=== PATIENT | female | born 1940 | race Caucasian/White ===

== ENCOUNTER 2016-11-03 18:21 | Emergency (ER) | payer MEDICARE, OTHER ==
[2016-11-03 22:21] LABS: ABSOLUTE LYMPHOCYTES (AUTO) 0.6 10^3/uL (0.5-4.7); ABSOLUTE MONOCYTES (AUTO) 0.3 10^3/uL (0.1-1.4); ABSOLUTE NEUT (AUTO) 8.1 10^3/uL (1.7-8.2); BASOPHILS % (AUTO) 0.2 % (0-2); HEMATOCRIT 45.4 % (36.0-47.0); HEMOGLOBIN 15.5 g/dL (12.0-15.5); HGB HCT DIFFERENCE 1.1; LYMPHOCYTES % (AUTO) 6.4 % (13-45); MEAN CORPUSCULAR HEMOGLOBIN 30.7 pg (27.0-33.4); MEAN CORPUSCULAR HGB CONC 34.2 g/dL (32.0-36.0); MEAN CORPUSCULAR VOLUME 90 fl (80-97); MONOCYTES % (AUTO) 3.1 % (3-13); RED BLOOD COUNT 5.05 10^6/uL (3.72-5.28); RED CELL DISTRIBUTION WIDTH 14.7 % (11.5-14.0); SEGMENTED NEUTROPHILS % (AUTO) 90.3 % (42-78)
[2016-11-03 22:35] LABS: ALANINE AMINOTRANSFERASE 48 U/L (9-52); ALBUMIN 4.4 g/dL (3.5-5.0); ALKALINE PHOSPHATASE 110 U/L (38-126); ANION GAP 14 (5-19); ASPARTATE AMINO TRANSFERASE 46 U/L (14-36); BILIRUBIN,DIRECT 0.3 mg/dL (0.0-0.4); BLOOD UREA NITROGEN 20 mg/dL (7-20); CALCIUM 9.5 mg/dL (8.4-10.2); CARBON DIOXIDE 29 mmol/L (22-30); CHLORIDE 94 mmol/L (98-107); CREATININE RESULT 1.16 mg/dL (0.52-1.25); GLUCOSE 182 mg/dL (75-110); SODIUM 137.2 mmol/L (137-145); TOTAL PROTEIN 7.4 g/dL (6.3-8.2)
[2016-11-03 22:36] LABS: POTASSIUM 4.5 mmol/L (3.6-5.0)
--- NOTE | 2016-11-03 23:53 | ER Document Report ---
ED Respiratory Problem - General Chief Complaint: Flu-like symptoms, wheezing Stated Complaint: FLU SYMPTOMS Notes: Patient is a 76-year-old female, past medical history former smoker, COPD, arthritis, vascular dementia, presents with 2 days of dry cough and wheezing. She was in [place] last week, diagnosed with flu and started on Tamiflu. She finished the course, but her symptoms remain. She tried her albuterol with some relief of her wheezing. She denies chest pain, nausea, vomiting, diarrhea , leg swelling, headache, back pain or rash. TRAVEL OUTSIDE OF THE [place] IN LAST 30 DAYS: No - Related Data Allergies/Adverse Reactions: codeine [Codeine] Allergy (Mild, Verified 08/23/14 15:45) feels really strange Sulfa (Sulfonamide Antibiotics) Allergy (Mild, Verified 08/23/14 15:45) Hives amoxicillin [Amoxicillin] Allergy (Verified 08/23/14 15:45) Past Medical History - General Information source: Patient - Social History Smoking Status: Unknown if Ever Smoked Family History: Reviewed & Not Pertinent - Past Medical History Cardiac Medical History: Reports: Hx Coronary Artery Disease Denies: Hx Heart Attack, Hx Hypertension Pulmonary Medical History: Denies: Hx Asthma Neurological Medical History: Denies: Hx Cerebrovascular Accident, Hx Seizures Renal/ Medical History: Denies: Hx Peritoneal Dialysis GI Medical History: Denies: Hx Hepatitis, Hx Hiatal Hernia, Hx Ulcer Infectious Medical History: Denies: Hx Hepatitis Past Surgical History: Reports: Hx Cardiac Surgery - Stent x3., Hx Hysterectomy. Denies: Hx Mastectomy - left breast lumpectomy, Hx Open Heart Surgery, Hx Pacemaker - Immunizations Hx Diphtheria, Pertussis, Tetanus Vaccination: No Review of Systems - Review of Systems Notes: REVIEW OF SYSTEMS: CONSTITUTIONAL: -fevers, -chills EENT: -eye pain, -difficulty swallowing, -nasal congestion CARDIOVASCULAR:-chest pain, -syncope. RESPIRATORY: +cough, -SOB, +wheezing GASTROINTESTINAL: -abdominal pain, - nausea, -vomiting, -diarrhea GENITOURINARY: -dysuria, -hematuria MUSCULOSKELETAL: -back pain, -neck pain SKIN: -rash or skin lesions. HEMATOLOGIC: -easy bruising or bleeding. LYMPHATIC: -swollen, enlarged glands. NEUROLOGICAL: -altered mental status or loss of consciousness, -headache, - neurologic symptoms PSYCHIATRIC: -anxiety, -depression. ALL OTHER SYSTEMS REVIEWED AND NEGATIVE. Physical Exam - Vital signs Vitals: Temp Pulse Resp BP Pulse Ox 97.8 F 95 20 123/86 H 92 11/03/16 19:48 11/03/16 19:48 11/03/16 19:48 11/03/16 19:48 11/03/16 19:48 - Notes Notes: PHYSICAL EXAMINATION: GENERAL: Well-appearing, well-nourished and in no acute distress. HEAD: Atraumatic, normocephalic. EYES: Pupils equal round and reactive to light, extraocular movements intact, sclera anicteric, conjunctiva are normal. ENT: nares patent, oropharynx clear without exudates. Moist mucous membranes. NECK: Normal range of motion, supple without lymphadenopathy LUNGS: No restaurant distress, mild end expiratory wheezes HEART: Regular rate and rhythm without murmurs ABDOMEN: Soft, nontender, normoactive bowel sounds. No guarding, no rebound. No masses appreciated. EXTREMITIES: Normal range of motion, no pitting or edema. No cyanosis. NEUROLOGICAL: Cranial nerves grossly intact. Normal speech, normal gait. Normal sensory, motor, and reflex exams. PSYCH: Normal mood, normal affect. SKIN: Warm, Dry, normal turgor, no rashes or lesions noted. Course - Re-evaluation Re-evalutation: Patient with mild COPD exacerbation. No respiratory distress noted at this time. After 3 DuoNebs and steroids, patient feels much better. Labs are unremarkable and chest x-ray does not show pneumonia. We'll send home with 4 more days of prednisone and instructions to use her albuterol every 4 hours as needed. Given strict return precautions and she understands. - Vital Signs Vital signs: Temp Pulse Resp BP Pulse Ox 98 F 89 20 155/75 H 92 11/04/16 01:09 11/04/16 01:09 11/04/16 01:09 11/04/16 01:09 11/04/16 01:09 - Laboratory Result Diagrams: 11/03/16 21:50 11/03/16 21:50 Laboratory results interpreted by me: 11/03/16 11/03/16 21:50 21:50 RDW 14.7 H Seg Neutrophils % 90.3 H Lymphocytes % 6.4 L Chloride 94 L Est GFR ( Amer) 55 L Est GFR (Non-Af Amer) 46 L Glucose 182 H AST 46 H - Diagnostic Test Radiology reviewed: Image reviewed, Reports reviewed Radiology results interpreted by me: CXR: NAD Discharge - Discharge Clinical Impression: COPD exacerbation Condition: Stable Disposition: HOME, SELF-CARE Additional Instructions: BRONCHITIS: You have acute bronchitis. This disease is an infection or inflammation of the air passageways in your lungs. Symptoms usually include cough, low grade fever, shortness of breath, and wheezing. The cough usually persists for a couple of weeks. Most cases of bronchitis get better without antibiotics. We prescribe antibiotics when we believe bacteria are damaging your airways, or if there's high risk the bronchitis will worsen into pneumonia. Increase your fluid intake. A cool mist humidifier may make your lungs more comfortable. An expectorant (cough medicine that loosens phlegm) can help. If you smoke, STOP!!! Recovery from bronchitis can be somewhat slow, but you should see improvement within a day or two. Repeated episodes of bronchitis may result in lung damage -- for example, chronic bronchitis, recurrent pneumonias, or emphysema. Call the doctor if you develop increasing fever, shortness of breath, chest pain, bloody sputum, or otherwise worsen. If you have not improved at all after several days, contact the physician. BRONCHITIS WITH BRONCHOSPASM (WHEEZING): You have bronchitis with bronchospasm (wheezing). Sometimes people develop wheezing with a chest cold. This occurs either because of an underlying tendency toward asthma or because the virus itself irritates the bronchial tubes. This irritation causes cough, shortness of breath, and wheezing. Emergency treatment of bronchospasm may include adrenaline shots or bronchodilator aerosol. You may feel lightheaded and have a rapid pulse for an hour or two. Rest and get plenty of fluids. At home, we'll treat you with a bronchodilator inhaler. Corticosteroids may be required for some patients. Until you recover, avoid chemical fumes, dusts, pollens, and exercising in very cold or dry air. If you smoke, stop now! Most cases of bronchitis get better without antibiotics. We prescribe antibiotics when we believe bacteria are damaging your airways, or if there's high risk the bronchitis will worsen into pneumonia. Increase your fluid intake. A cool mist humidifier may make your lungs more comfortable. An expectorant (cough medicine that loosens phlegm) can help. Repeated episodes of bronchitis and bronchospasm may result in lung damage -- for example, chronic bronchitis, recurrent pneumonias, or emphysema. If you develop a fever, increased wheezing, chest pain, or severe shortness of breath, you should contact the doctor immediately. INHALED BRONCHODILATORS: You have received a treatment of and/or prescription for an inhaled bronchodilator -- a medication which stimulates the airways in the lung to dilate. This improves the flow of air in asthma, bronchitis, and emphysema. These medicines have some similarity to adrenaline, and can cause similar side effects: shakiness, racing heart, and a sense of nervousness. These side effects decrease with time. Contact your doctor if these side effects are severe. Do not over-use the medicine. Too-frequent use of the inhaler may make it ineffective. Call your doctor if the inhaler is not controlling your symptoms at the prescribed doses. STEROID MEDICATION: You have been given an injection of or oral medicine of the cortisone/ steroid class. This medication is used to control inflammation or allergy. Tree t is usually only given for a short period of time, until the acute process subsides. There are usually no side effects from short-term use of cortisone-like medications. Some persons feel an increased sense of well-being and are not sleepy at bedtime. Long-term use of cortisone medications is best avoided, unless required for a severe condition. If your condition does not remit, or relapses after the course of corticosteroid medication, you should consult your physician. USE OF ACETAMINOPHEN (Tylenol): Acetaminophen may be taken for pain relief or fever control. It's much safer than aspirin, offering a wider range of "safe" dosages. It is safe during . Some brand names are Tylenol, Panadol, Datril, Anacin 3, Tempra, and Liquiprin. Acetaminophen can be repeated every four hours. The following are maximum recommended dosages: >89 pounds or adults 650 mg to 900 mg Acetaminophen can be repeated every four hours. Maximum dose not to exceed 4000 mg a day. SMOKING: If you smoke, you should stop smoking. The tar and chemicals in cigarette smoke are harmful. Smoking has been shown to cause: emphysema chronic bronchitis lung cancer mouth and throat cancer stomach and pancreas cancer premature aging defects In addition, smoking increases ear and lung infections in children of smokers. FOLLOW-UP CARE: If you have been referred to a physician for follow-up care, call the physician s office for an appointment as you were instructed or within the next two days. If you experience worsening or a significant change in your symptoms, notify the physician immediately or return to the Emergency Department at any time for re-evaluation. Prescriptions: Prednisone [Deltasone 20 mg Tablet] 3 tab PO DAILY 4 Days Referrals: HOLLIS HARVEY MD [Primary Care Provider] - Follow up as needed
[2016-11-04] MEDS ORDERED: PREDNISONE 20 MG TABLET PO ONE (00:02)
[2016-11-04] MEDS ORDERED: IPRATROPIUM/ALBUTEROL 0.5-2.5 MG/3 ML AMPUL NEB ONE (00:02)
[2016-11-04 02:33] VITALS: BP 155/75
== END 2016-11-04 01:09 | disposition home or self-care (01) ==
LOC: ER 18:21
DX: J44.1 Chronic obstructive pulmonary disease with (acute) exacerbation (principal); R06.2 Wheezing; F01.50 Vascular dementia, unspecified severity, without behavioral disturbance, psychotic disturbance, mood disturbance, and anxiety; Z87.891 Personal history of nicotine dependence
CPT/HCPCS: 94640; 99283; 36415; 85025; 80053; 71020; A9270 ×2; J7512; J7620

== ENCOUNTER 2017-04-28 17:11 | Emergency (ER) | payer MEDICARE, OTHER ==
[2017-04-28] MEDS ORDERED: ASPIRIN 81 MG TABLET, CHEWABLE PO ONE (17:54)
--- NOTE | 2017-04-28 17:55 | ER Document Report ---
ED Medical Screen (RME) - General Mode of Arrival: Wheelchair Information source: Patient TRAVEL OUTSIDE OF THE [place] IN LAST 30 DAYS: No <KEN GALLAGHER - Last Filed: 04/28/17 18:49> <ROLAND BARRETO - Last Filed: 04/28/17 19:47> - General Chief Complaint: Abnormal Lab Results Stated Complaint: ABNORMAL LABS Time Seen by Provider: 04/28/17 17:45 Notes: 76-year-old female presents to the ED from [facility] for IV fluids after having abnormal lab results earlier this morning. Patient had a planned AAA repair on 04/21/2017 at [facility]. Patient was released, but has been experiencing fatigue, loss of appetite, poor fluid intake, and lower extremity weakness since the surgery. Patient's family called Dr. Leyva, vascular surgeon, regarding this issue and was told to follow up with her primary care provider. Patient was seen at the clinic where she was diagnosed with a UTI and told to come to the ED secondary to dehydration. Patient is on Plavix. (KEN GALLAGHER) - Related Data Allergies/Adverse Reactions: codeine [Codeine] Allergy (Mild, Verified 04/28/17 17:25) feels really strange Sulfa (Sulfonamide Antibiotics) Allergy (Mild, Verified 04/28/17 17:25) Hives amoxicillin [Amoxicillin] Allergy (Verified 04/28/17 17:25) Past Medical History - General Information source: Patient - Social History Chew tobacco use (# tins/day): No Frequency of alcohol use: None Drug Abuse: None Family history: Reviewed & Not Pertinent - Past Medical History Cardiac Medical History: Reports: Hx Coronary Artery Disease Denies: Hx Congestive Heart Failure, Hx Heart Attack, Hx Hypertension Pulmonary Medical History: Reports: Hx COPD Denies: Hx Asthma Neurological Medical History: Denies: Hx Cerebrovascular Accident, Hx Seizures Renal/ Medical History: Denies: Hx Peritoneal Dialysis GI Medical History: Denies: Hx Hepatitis, Hx Hiatal Hernia, Hx Ulcer Infectious Medical History: Denies: Hx Hepatitis Past Surgical History: Reports: Hx Cardiac Surgery - Stent x3. AAA repair, Hx Hysterectomy, Hx Vascular Surgery - carotid artery surgery. Denies: Hx Mastectomy - left breast lumpectomy, Hx Open Heart Surgery, Hx Pacemaker - Immunizations Hx Diphtheria, Pertussis, Tetanus Vaccination: No History of Influenza Vaccine for 04/2017 - 09/2017 Season: Yes Influenza Administration Date for 04/2017 - 09/2017 Season: 04/17/17 <KEN GALLAGHER - Last Filed: 04/28/17 18:49> Review of Systems - Review of Systems Constitutional: See HPI, Malaise, Weakness EENT: No symptoms reported Cardiovascular: No symptoms reported Respiratory: No symptoms reported Gastrointestinal: See HPI, Abdominal pain - left abdominal pain, Poor appetite, Poor fluid intake Genitourinary: No symptoms reported Female Genitourinary: No symptoms reported Musculoskeletal: No symptoms reported Skin: No symptoms reported Hematologic/Lymphatic: No symptoms reported Neurological/Psychological: No symptoms reported -: Yes All other systems reviewed and negative <KEN GALLAGHER - Last Filed: 04/28/17 18:49> Physical Exam - General General appearance: Alert In distress: None - Respiratory Respiratory status: No respiratory distress Breath sounds: Normal - Cardiovascular Rhythm: Regular Heart sounds: Normal auscultation Murmur: No Friction rub: No Gallop: None auscultated Pulses: Normal: Radial - Abdominal Inspection: Other - bruising to the right groin and right lower abdomen. No: Normal Bowel sounds: Normal Tenderness: Tender - tenderness to palpation of the left lower quadrant <KEN GALLAGHER - Last Filed: 04/28/17 18:49> <ROLAND BARRETO - Last Filed: 04/28/17 19:47> - Vital signs Vitals: Temp Pulse Resp BP Pulse Ox 98.4 F 75 16 109/71 97 04/28/17 17:24 04/28/17 17:24 04/28/17 17:24 04/28/17 17:24 04/28/17 17:24 - Notes Notes: Oriented to person, disoriented to place and time (ROLAND BARRETO) Course - Laboratory Result Diagrams: 04/28/17 18:53 04/28/17 18:53 <ROLAND BARRETO - Last Filed: 04/28/17 19:47> - Vital Signs Vital signs: Temp Pulse Resp BP Pulse Ox 98.4 F 75 16 109/71 97 04/28/17 17:24 04/28/17 17:24 04/28/17 17:24 04/28/17 17:24 04/28/17 17:24 Scribe Documentation - Scribe Written by Shanikaibe:: Claudio Chester, 04/28/2017 1925 acting as scribe for :: James <KEN GALLAGHER - Last Filed: 04/28/17 18:49>
[2017-04-28] MEDS ORDERED: NORMAL SALINE 1000 ML 1,000 ML IV ONE ×2 (17:56→21:45)
--- NOTE | 2017-04-28 18:23 | RADIOLOGY REPORT (SQ) ---
EXAM DESCRIPTION: CHEST SINGLE VIEW COMPLETED DATE/TIME: 04/28/2017 6:13 pm REASON FOR STUDY: SOB, fatigue, recent AAA repair COMPARISON: Two-view chest 11/03/2016, 08/23/2014 EXAM PARAMETERS: NUMBER OF VIEWS: One view. TECHNIQUE: Single frontal radiographic view of the chest acquired. RADIATION DOSE: NA LIMITATIONS: None. FINDINGS: LUNGS AND PLEURA: No opacities, masses or pneumothorax. No pleural effusion. MEDIASTINUM AND HILAR STRUCTURES: No masses. Contour normal. HEART AND VASCULAR STRUCTURES: Heart normal in size. Normal vasculature. BONES: No acute findings. HARDWARE: Surgical clips left breast. Aortic stent graft seen at the bottom edge of the field of vie w OTHER: No other significant finding. IMPRESSION: NO ACUTE RADIOGRAPHIC FINDING IN THE CHEST. TECHNICAL DOCUMENTATION: JOB ID: [id number]
[2017-04-28 19:44] LABS: PROTHROMBIN TIME 12.1 SEC (11.4-15.4)
[2017-04-28 22:13] LABS: ABSOLUTE BASOPHILS # (AUTO) 0.1 10^3/uL (0.0-0.2); ABSOLUTE EOSINOPHILS # (AUTO) 0.1 10^3/uL (0.0-0.6); ABSOLUTE MONOCYTES (AUTO) 0.5 10^3/uL (0.1-1.4); BASOPHILS % (AUTO) 0.7 % (0-2); EOSINOPHILS % (AUTO) 1.9 % (0-6); HEMATOCRIT 38.4 % (36.0-47.0); HEMOGLOBIN 13.1 g/dL (12.0-15.5); HGB HCT DIFFERENCE 0.9; MEAN CORPUSCULAR HEMOGLOBIN 30.6 pg (27.0-33.4); MEAN CORPUSCULAR HGB CONC 34.2 g/dL (32.0-36.0); MEAN CORPUSCULAR VOLUME 89 fl (80-97); MONOCYTES % (AUTO) 6.8 % (3-13); RED CELL DISTRIBUTION WIDTH 14.5 % (11.5-14.0); SEGMENTED NEUTROPHILS % (AUTO) 77.6 % (42-78); WHITE BLOOD COUNT 7.7 10^3/uL (4.0-10.5)
--- NOTE | 2017-04-28 22:22 | ER Document Report ---
ED General - General Chief Complaint: Abnormal Lab Results Stated Complaint: ABNORMAL LABS Time Seen by Provider: 04/28/17 17:45 Mode of Arrival: Wheelchair Information source: Patient, Dr. Office Notes: 76-year-old female resents with concern for weakness of one-week duration. Patient had a AAA repaired at [facility], since then has had decreased appetite. Family is concerned patient may be dehydrated and went to family doctor. I did speak with patient's primary care physician and agree that the patient appears to be dehydrated based on lab work and presentation. Patient was sent in for evaluation TRAVEL OUTSIDE OF THE [place] IN LAST 30 DAYS: No - HPI Onset: Last week Onset/Duration: Persistent Quality of pain: No pain Severity: None Pain Level: Denies Associated symptoms: Weakness, Other - Decreased appetite Exacerbated by: Denies Relieved by: Denies Similar symptoms previously: No Recently seen / treated by doctor: Yes - Related Data Allergies/Adverse Reactions: codeine [Codeine] Allergy (Mild, Verified 04/28/17 17:25) feels really strange Sulfa (Sulfonamide Antibiotics) Allergy (Mild, Verified 04/28/17 17:25) Hives amoxicillin [Amoxicillin] Allergy (Verified 04/28/17 17:25) Past Medical History - General Information source: Patient - Social History Smoking Status: Former Smoker Cigarette use (# per day): No Chew tobacco use (# tins/day): No Smoking Education Provided: No Frequency of alcohol use: None Drug Abuse: None Family History: Reviewed & Not Pertinent Patient has suicidal ideation: No - Past Medical History Cardiac Medical History: Reports: Hx Coronary Artery Disease Denies: Hx Congestive Heart Failure, Hx Heart Attack, Hx Hypertension Pulmonary Medical History: Reports: Hx COPD Denies: Hx Asthma Neurological Medical History: Denies: Hx Cerebrovascular Accident, Hx Seizures Renal/ Medical History: Denies: Hx Peritoneal Dialysis GI Medical History: Denies: Hx Hepatitis, Hx Hiatal Hernia, Hx Ulcer Infectious Medical History: Denies: Hx Hepatitis Past Surgical History: Reports: Hx Cardiac Surgery - Stent x3. AAA repair, Hx Hysterectomy, Hx Vascular Surgery - carotid artery surgery. Denies: Hx Mastectomy - left breast lumpectomy, Hx Open Heart Surgery, Hx Pacemaker - Immunizations Hx Diphtheria, Pertussis, Tetanus Vaccination: No Review of Systems - Review of Systems Notes: REVIEW OF SYSTEMS: CONSTITUTIONAL : Denies fever, chills, or sweats. Denies recent illness. EENT: Denies eye, ear, throat, or mouth pain or symptoms. Denies nasal or sinus congestion or discharge. Denies throat, tongue, or mouth swelling or difficulty swallowing. CARDIOVASCULAR: Denies chest pain. Denies palpitations or racing or irregular heart beat. Denies ankle edema. RESPIRATORY: Denies cough, cold, or chest congestion. Denies shortness of breath, difficulty breathing, or wheezing. GASTROINTESTINAL: Denies abdominal pain or distention. Denies nausea, vomiting , or diarrhea. Denies blood in vomitus, stools, or per rectum. Denies black, tarry stools. Denies constipation. GENITOURINARY: Denies difficulty urinating, painful urination, burning, frequency, blood in urine, or discharge. FEMALE GENITOURINARY: Denies vaginal bleeding, heavy or abnormal periods, irregular periods. Denies vaginal discharge or odor. MUSCULOSKELETAL: Denies back or neck pain or stiffness. Denies joint pain or swelling. SKIN: Denies rash, lesions or sores. HEMATOLOGIC : Denies easy bruising or bleeding. LYMPHATIC: Denies swollen, enlarged glands. NEUROLOGICAL: Admits to decreased appetite and weakness PSYCHIATRIC: Denies anxiety or stress. Denies depression, suicidal ideation, or homicidal ideation. ALL OTHER SYSTEMS REVIEWED AND NEGATIVE. PHYSICAL EXAMINATION: GENERAL: Well-appearing, well-nourished and in no acute distress. HEAD: Atraumatic, normocephalic. EYES: Pupils equal round and reactive to light, extraocular movements intact, conjunctiva are normal. ENT: Nares patent, oropharynx clear without exudates. Moist mucous membranes. NECK: Normal range of motion, supple without lymphadenopathy LUNGS: Breath sounds clear to auscultation bilaterally and equal. No wheezes rales or rhonchi. HEART: Regular rate and rhythm without murmurs ABDOMEN: Soft, nontender, nondistended abdomen. No guarding, no rebound. No masses appreciated. Female : deferred Musculoskeletal: Normal range of motion, no pitting or edema. No cyanosis. NEUROLOGICAL: Cranial nerves grossly intact. Normal speech, normal gait. Normal sensory, motor exams PSYCH: Normal mood, normal affect. SKIN: Warm, Dry, normal turgor, no rashes or lesions noted. Dictation was performed using Dragon voice recognition software Physical Exam - Vital signs Vitals: Temp Pulse Resp BP Pulse Ox 98.4 F 75 16 109/71 97 04/28/17 17:24 04/28/17 17:24 04/28/17 17:24 04/28/17 17:24 04/28/17 17:24 Course - Re-evaluation Re-evalutation: 04/28/17 23:15 Patient was noted to have hypokalemia, she was given 40 potassium oral, she was given 2 L of normal saline bolus. 04/28/17 23:15 Patient is noted to have elevated BUN, and was diagnosed with UTI with positive nitrites per primary care physician 04/28/17 23:59 Patient family notes she looks much better after 2 L of normal saline. I will discharge her home at this time. I believe some of her weakness may be secondary to this UTI. It is also noted that the patient has had decreased appetite, I will write for Megace to increase her appetite over the next few days and to follow-up in the office on Tuesday for reevaluation After performing a Medical Screening Examination, I estimate there is LOW risk for ACUTE CORONARY SYNDROME, RESPIRATORY FAILURE, SEPSIS OR MENINGITIS, thus I consider the discharge disposition reasonable. I have reevaluated this patient multiple times and no significant life threatening changes are noted. The patient and I have discussed the diagnosis and risks, and we agree with discharging home with close follow-up. We also discussed returning to the Emergency Department immediately if new or worsening symptoms occur. We have discussed the symptoms which are most concerning (e.g., changing or worsening pain, trouble swallowing or breathing, neck stiffness, fever) that necessitate immediate return. - Vital Signs Vital signs: Temp Pulse Resp BP Pulse Ox 98 F 54 L 19 159/72 H 98 04/28/17 21:46 04/28/17 21:46 04/28/17 23:02 04/28/17 23:02 04/28/17 23:02 - Laboratory Result Diagrams: 04/28/17 21:50 04/28/17 21:50 Laboratory results interpreted by me: 04/28/17 04/28/17 21:50 21:50 RDW 14.5 H Potassium 3.0 L* BUN 27 H Direct Bilirubin 0.5 H Alkaline Phosphatase 134 H - Diagnostic Test Radiology reviewed: Image reviewed, Reports reviewed - EKG Interpretation by Me EKG shows normal: Sinus rhythm, [place], Intervals, QRS Complexes Discharge - Discharge Clinical Impression: Weakness, Hypokalemia, Dehydration UTI (urinary tract infection) Qualifiers: Urinary tract infection type: acute cystitis Hematuria presence: without hematuria Qualified Code(s): N30.00 - Acute cystitis without hematuria Condition: Stable Disposition: HOME, SELF-CARE Instructions: Urinary Tract Infection ([facility]), Hypokalemia ([facility]) Prescriptions: Megestrol Acetate [Megace Es] 625 mg PO DAILY 3 Days oral.susp Potassium Bicarbonate/Cit AC [Potassium 25 Meq Tab Eff] 25 meq PO DAILY 3 Days tablet.eff Referrals: HOLLIS HARVEY MD [COMMUNITY BASED STAFF] - Follow up in 3-5 days
[2017-04-28 22:26] LABS: ALANINE AMINOTRANSFERASE 38 U/L (9-52); ALBUMIN 4.1 g/dL (3.5-5.0); ALKALINE PHOSPHATASE 134 U/L (38-126); ANION GAP 16 (5-19); ASPARTATE AMINO TRANSFERASE 29 U/L (14-36); BILIRUBIN,DIRECT 0.5 mg/dL (0.0-0.4); BLOOD UREA NITROGEN 27 mg/dL (7-20); CALCIUM 9.2 mg/dL (8.4-10.2); CARBON DIOXIDE 28 mmol/L (22-30); CHLORIDE 98 mmol/L (98-107); CREATINE KINASE 47 U/L (30-135); CREATININE RESULT 0.89 mg/dL (0.52-1.25); GLUCOSE 107 mg/dL (75-110); SODIUM 141.7 mmol/L (137-145); TOTAL PROTEIN 7.2 g/dL (6.3-8.2)
[2017-04-28 22:37] LABS: CREATINE KINASE MB 1.23 ng/mL (<4.55)
[2017-04-28 22:42] LABS: TROPONIN I 0.039 ng/mL
[2017-04-28] MEDS ORDERED: POTASSIUM CHLORIDE 10 MEQ TABLET.SA PO ONE (22:43)
[2017-04-29 00:21] VITALS: BP 143/86
--- NOTE | 2017-04-29 12:32 | ER Document Report ---
Doctor's Note Notes: 04/29/17 12:30 pharmacy called to state they do not have 25meq effervescent tabs x 3 days that was prescribed. Changed to 20 meq/5ml x 4 days.
== END 2017-04-29 00:22 | disposition home or self-care (01) ==
LOC: ER 17:11
DX: E87.6 Hypokalemia (principal); E86.0 Dehydration; N39.0 Urinary tract infection, site not specified; R53.1 Weakness; R63.0 Anorexia; Z95.5 Presence of coronary angioplasty implant and graft; J44.9 Chronic obstructive pulmonary disease, unspecified; I25.10 Atherosclerotic heart disease of native coronary artery without angina pectoris; Z98.890 Other specified postprocedural states; Z88.5 Allergy status to narcotic agent; Z88.2 Allergy status to sulfonamides; Z88.0 Allergy status to penicillin; Z87.891 Personal history of nicotine dependence
CPT/HCPCS: 99284; 96360; 96361; 36415; 82553; 82550; 83735; 85025; 85610; 80053; 84484; 71010; A9270 ×2; J7030

== ENCOUNTER → 2018-05-03 | Outpatient (CLI) | payer MEDICARE, OTHER ==
--- NOTE | 2018-05-03 11:09 | RADIOLOGY REPORT (SQ) ---
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 TECHNIQUE: Realtime and static grayscale images acquired. Selected color Doppler, velocities and spe ctral images recorded. LIMITATIONS: Patient motion. FINDINGS: RIGHT KIDNEY: RENAL ARTERY VELOCITIES: 81 cm/sec. Segmental artery velocity 15 cm/sec. RENAL VEIN: Color doppler flow present, patent. VELOCITY RATIO: 1.6. Normal waveforms. KIDNEY: 8.5 cm. LEFT KIDNEY: RENAL ARTERY VELOCITIES: 79 cm/sec. Segmental artery velocity 46 cm/sec. RENAL VEIN: Color doppler flow present, patent. VELOCITY RATIO: 1.5. Normal waveforms. KIDNEY: 10.7 cm. BLADDER: Not visualized. OTHER: No other significant finding. IMPRESSION: NO DOPPLER EVIDENCE OF HEMODYNAMICALLY SIGNIFICANT RENAL ARTERY STENOSIS. COMMENT: NORMAL RENAL ARTERY/AORTA VELOCITY RATIO IS LESS THAN OR EQUAL TO 3.5. TECHNICAL DOCUMENTATION: JOB ID: [id number] [employer]- All Rights Reserved Reading location - IP/workstation name: [email or web address]
--- NOTE | 2018-05-03 13:11 | RADIOLOGY REPORT (SQ) ---
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 TECHNIQUE: Dynamic and static grayscale images acquired of the kidneys and bladder and recorded on P ACS. Additional selected color Doppler and spectral images recorded. LIMITATIONS: None. FINDINGS: RIGHT KIDNEY: 8.5 cm. Cortical thinning. Increased cortical echogenicity. No solid o r suspicious masses. No hydronephrosis. No calcifications. LEFT KIDNEY: 10.7 cm. Cortical thinning. Increased cortical echogenicity. No solid or suspiciou s masses. No hydronephrosis. No calcifications. BLADDER: Not visualized. OTHER: No other significant finding. IMPRESSION: CHRONIC MEDICAL RENAL DISEASE. NO HYDRONEPHROSIS. TECHNICAL DOCUMENTATION: JOB ID: [id number] [employer]- All Rights Reserved Reading location - IP/workstation name: [facility]
== END ==
LOC: RAD 09:24
PROVIDERS: ATTEND Internal Medicine Nephrology
DX: I12.9 Hypertensive chronic kidney disease with stage 1 through stage 4 chronic kidney disease, or unspecified chronic kidney disease (principal); N18.9 Chronic kidney disease, unspecified; I63.9 Cerebral infarction, unspecified
CPT/HCPCS: 76770; 93976

== ENCOUNTER → 2018-05-19 | Outpatient (CLI) | payer MEDICARE, OTHER ==
[2018-05-19 12:19] LABS: ABSOLUTE BASOPHILS # (AUTO) 0.1 10^3/uL (0.0-0.2); ABSOLUTE EOSINOPHILS # (AUTO) 0.1 10^3/uL (0.0-0.6); ABSOLUTE MONOCYTES (AUTO) 0.4 10^3/uL (0.1-1.4); ABSOLUTE NEUT (AUTO) 3.6 10^3/uL (1.7-8.2); BASOPHILS % (AUTO) 1.4 % (0-2); EOSINOPHILS % (AUTO) 2.1 % (0-6); HEMATOCRIT 38.8 % (36.0-47.0); HEMOGLOBIN 13.1 g/dL (12.0-15.5); LYMPHOCYTES % (AUTO) 19.9 % (13-45); MEAN CORPUSCULAR HEMOGLOBIN 29.4 pg (27.0-33.4); MEAN CORPUSCULAR HGB CONC 33.9 g/dL (32.0-36.0); MEAN CORPUSCULAR VOLUME 87 fl (80-97); MONOCYTES % (AUTO) 6.9 % (3-13); PLATELET COUNT 254 10^3/uL (150-450); RED BLOOD COUNT 4.47 10^6/uL (3.72-5.28); RED CELL DISTRIBUTION WIDTH 15.1 % (11.5-14.0); SEGMENTED NEUTROPHILS % (AUTO) 69.7 % (42-78); TOTAL CELLS COUNTED % (AUTO) 100 %; WHITE BLOOD COUNT 5.2 10^3/uL (4.0-10.5)
[2018-05-19 12:53] LABS: ALANINE AMINOTRANSFERASE 14 U/L (9-52); ALBUMIN 3.8 g/dL (3.5-5.0); ALKALINE PHOSPHATASE 119 U/L (38-126); ANION GAP 11 (5-19); ASPARTATE AMINO TRANSFERASE 26 U/L (14-36); BILIRUBIN,DIRECT 0.3 mg/dL (0.0-0.4); BILIRUBIN,TOTAL 0.9 mg/dL (0.2-1.3); BLOOD UREA NITROGEN 13 mg/dL (7-20); CALCIUM 9.2 mg/dL (8.4-10.2); CARBON DIOXIDE 31 mmol/L (22-30); CHLORIDE 98 mmol/L (98-107); GLUCOSE 100 mg/dL (75-110); PHOSPHORUS 3.4 mg/dL (2.5-4.5); POTASSIUM 4.3 mmol/L (3.6-5.0); SODIUM 139.8 mmol/L (137-145); TOTAL PROTEIN 6.9 g/dL (6.3-8.2)
[2018-05-19 12:55] LABS: APPEARANCE,URINE CLOUDY; BILIRUBIN,URINE NEGATIVE (NEGATIVE); COLOR,URINE YELLOW; GLUCOSE, URINE NEGATIVE (NEGATIVE); KETONES,URINE NEGATIVE (NEGATIVE); LEUKOCYTE ESTERASE,URINE LARGE (NEGATIVE); NITRITE,URINE POSITIVE (NEGATIVE); PROTEIN,URINE 30 mg/dL (NEGATIVE); URINE SPECIFIC GRAVITY 1.015
== END ==
LOC: OD 11:39
PROVIDERS: ATTEND Internal Medicine Nephrology
DX: I63.9 Cerebral infarction, unspecified (principal); I12.9 Hypertensive chronic kidney disease with stage 1 through stage 4 chronic kidney disease, or unspecified chronic kidney disease; N18.9 Chronic kidney disease, unspecified; R63.4 Abnormal weight loss
CPT/HCPCS: 36415; 80053; 81001; 83735; 84100; 85025